=== PATIENT | female | born 1990 | race Caucasian/White ===

== ENCOUNTER 2017-05-29 13:21 | Inpatient (IN) | payer BC ==
[~2017-05-29] VITALS: Ht 149.9 cm; Wt 77.3 kg
[2017-06-05] MEDS ORDERED: PRENATAL1 TA7 PO (20:59)
[2017-06-05] MEDS ORDERED: CALCIUM CARBON650 M2 (21:00)
[2017-06-05] MEDS ORDERED: OMEGA-3 1000 MG1 CAP (21:00)
[2017-06-05 21:01] VITALS: BP 119/66; PULSE 113; TEMP 97.7
[2017-06-05 21:30] VITALS: BP 119/66; PULSE 113
[2017-06-05 22:20] VITALS: BP 121/69; PULSE 80
[2017-06-05 22:50] VITALS: BP 111/52; PULSE 86
[2017-06-05 23:20] VITALS: BP 116/56; PULSE 81
[2017-06-05 23:30] LABS: BASO % 0.2 % (0.0-2.0); EOS # 0.2 (0.0-0.7); EOS % 1.7 % (0-4.0); GRAN # 7.2 (1.4-6.5); GRAN % 67.1 % (42.2-75.2); HEMATOCRIT 38.3 % (37.0-47.0); HEMOGLOBIN 13.2 g/dl (12.5-16.0); LYMPH # 2.5 (1.2-3.4); LYMPH % 23.1 % (20.0-51.0); MEAN CELL VOLUME 90 fl (80.0-100.0); MEAN CORPUSCULAR HEMOGLOBIN 31 pg (27.0-31.0); MEAN CORPUSCULAR HGB CONC 35 g/dl (33.0-37.0); MEAN PLATELET VOLUME 11.3 fl (7.4-10.4); MONO # 0.8 (0.1-0.6); MONO % 7.3 % (1.7-9.3); PLATELET COUNT 244 K/mm3 (130-400); RED BLOOD COUNT 4.24 M/mm3 (4.10-5.30); REDCELL DISTRIBUTION WIDTH-CV 13.2 % (11.5-14.5)
[2017-06-06] VITALS (56 sets, daily range): BP systolic 91–133; BP diastolic 52–84; PULSE 72–122; TEMP 97.8–99.6
[2017-06-07] VITALS (8 sets, daily range): BP systolic 96–125; BP diastolic 57–73; PULSE 88–112; TEMP 97.1–98.7
[2017-06-08 04:00] VITALS: BP 108/62; PULSE 89; TEMP 98.1
[2017-06-08] MEDS ORDERED: IBU800 M1 PO (09:04)
[2017-06-08 09:30] VITALS: BP 113/65; PULSE 78; TEMP 98.2
== END 2017-06-08 16:20 | disposition home or self-care (01) | DRG 775 ==
LOC: LDR 06-05 13:20 → OB 06-07 02:55
PROVIDERS: Student in an Organized Health Care Education/Training Program
PROC: 10E0XZZ Delivery of Products of Conception, External Approach (ICD-10-PCS; principal; 2017-06-06)
PROC: 0KQM0ZZ Repair Perineum Muscle, Open Approach (ICD-10-PCS; 2017-06-06)
PROC: 0UQMXZZ Repair Vulva, External Approach (ICD-10-PCS; 2017-06-06)
PROC: 3E033VJ Introduction of Other Hormone into Peripheral Vein, Percutaneous Approach (ICD-10-PCS; 2017-06-06)
DX: O48.0 Post-term pregnancy (principal); O70.1 Second degree perineal laceration during delivery; O26.86 Pruritic urticarial papules and plaques of pregnancy (PUPPP); O69.81X0 Labor and delivery complicated by cord around neck, without compression, not applicable or unspecified; O71.82 Other specified trauma to perineum and vulva; Z3A.40 40 weeks gestation of pregnancy; Z37.0 Single live birth
CPT/HCPCS: J2590; J7120

== ENCOUNTER → 2017-06-13 | Outpatient (CLI) | payer BC ==
[~2017-06-13] MED LIST: CALCIUM CARBON650 M2; IBU800 M1 PO; OMEGA-3 1000 MG1 CAP; PRENATAL1 TA7 PO
== END ==
LOC: OLC 10:09
DX: Z39.1 Encounter for care and examination of lactating mother (principal); Z71.89 Other specified counseling

== ENCOUNTER → 2017-06-20 | Outpatient (CLI) | payer BC | LOC: OLC 11:35 | DX: Z39.1 Encounter for care and examination of lactating mother (principal); Z71.89 Other specified counseling ==

== ENCOUNTER → 2017-06-27 | Outpatient (CLI) | payer BC | LOC: LAC 09:53 | DX: Z39.1 Encounter for care and examination of lactating mother (principal); Z71.89 Other specified counseling ==

== ENCOUNTER → 2017-07-04 | Outpatient (CLI) | payer BC | LOC: OLC 09:54 | DX: Z39.1 Encounter for care and examination of lactating mother (principal); Z71.89 Other specified counseling ==

== ENCOUNTER → 2017-07-11 | Outpatient (CLI) | payer BC | LOC: OLC 10:04 | DX: Z39.1 Encounter for care and examination of lactating mother (principal); Z71.89 Other specified counseling ==

== ENCOUNTER → 2017-08-01 | Outpatient (CLI) | payer BC | LOC: OLC 09:45 | DX: Z39.1 Encounter for care and examination of lactating mother (principal); Z71.89 Other specified counseling ==

== ENCOUNTER → 2019-10-03 | Outpatient (CLI) | payer BC | LOC: ZCOL.LAB 09:30 | DX: Z20.828 Contact with and (suspected) exposure to other viral communicable diseases (principal) ==

== ENCOUNTER 2019-10-09 07:22 | Inpatient (IN) | payer BC ==
[~2019-10-09] VITALS: Ht 152.4 cm; Wt 87.7 kg
[2019-10-09] VITALS (55 sets, daily range): BP systolic 99–151; BP diastolic 54–85; PULSE 74–127; TEMP 97.9–98.3
--- NOTE | 2019-10-09 07:30 | NUR ---
Pt arrives on unit ambulatory with spouse for IOL. Changed into clean gown. EFM and toco. VSS. Denies regular ctx, vaginal bleeding, LOF, and reports GFM. Admission assessment completed. Consents signed. IV started in LH. Labs drawn. LR insfusing. Pt updated on POC. Bed locked in low position. Call light within reach. No questions or concerns at this time.
[2019-10-09 08:44] LABS: HEMOGLOBIN 12.1 g/dl (12.5-16.0); MEAN CELL VOLUME 91 fl (80.0-100.0); MEAN CORPUSCULAR HEMOGLOBIN 31 pg (27.0-31.0); MEAN CORPUSCULAR HGB CONC 34 g/dl (33.0-37.0); MEAN PLATELET VOLUME 11.4 fl (7.4-10.4); PLATELET COUNT 204 K/mm3 (130-400); RED BLOOD COUNT 3.92 M/mm3 (4.10-5.30); REDCELL DISTRIBUTION WIDTH-CV 13.1 % (11.5-14.5)
[2019-10-09 08:46] LABS: HEMATOCRIT 35.6 % (37.0-47.0)
[2019-10-09 09:28] LABS: BAND 9 % (0-10); LYMPHOCYTE 41 % (20.0-51.0); NEUTROPHILS 43 % (42.0-75.2); PLATELET ESTIMATE NORMAL (NORMAL)
--- NOTE | 2019-10-09 13:37 | NUR ---
Pt sitting at EOB for epidural placement. Difficulty tracing FHR due to maternal position. RN at bedside adjusting monitors. FHR audible.
--- NOTE | 2019-10-09 18:50 | NUR ---
1823- FHT HAVING DEEP VARIABLES RECURRENT WITH EVERY CTX. PROVIDER AT DESK REVIEWING STRIP. RN AND PROVIDER TO BEDSIDE TO CHANGE POSITION. 1825- PROVIDER SVE, UNCHANGED AT /-1. 1830- PITOCIN TURNED OFF VIA DOCTORS VERBAL ORDERS. 183- PROVIDER AND NURSE HELPED PATIENT TO HANDS AND KNEES POSITION. RN AND PROVIDER REMAIN AT BEDSIDE. 1846- PROVIDER AND NURSE HELP PATIENT BACK TO WEDGE LEFT WITH THE PEANUT BALL. FHT NOTED TO BE BETTER BY PROVIDER. RN AND PROVIDER REMAIN AT DESK REVIEWING STRIP CONSTANTLY. CALL LIGHT WITHIN REACH.
[2019-10-10 00:45] VITALS: BP 100/62; PULSE 90; TEMP 97.6
[2019-10-10 04:45] VITALS: BP 100/52; PULSE 91; TEMP 97.7
[2019-10-10 07:10] VITALS: BP 95/52; PULSE 81; TEMP 97.5
--- NOTE | 2019-10-10 10:34 | NUR ---
Initial visit; Mom thanked for looking in on her and offering congratulations for the of her son. thanked patient for choosing [facility].
[2019-10-10 12:50] VITALS: BP 98/55; PULSE 93; TEMP 97.7
[2019-10-10 17:45] VITALS: BP 103/60; PULSE 86; TEMP 97.6
[2019-10-10 20:00] VITALS: BP 110/60; PULSE 88; TEMP 97.9
[2019-10-11 08:15] VITALS: BP 114/66; PULSE 88; TEMP 97.5
[2019-10-11] MEDS ORDERED: IBU800 M1 PO (08:35)
[2019-10-11] MEDS ORDERED: PERCOCET 325 MG1 TA2 PO (08:35)
[2019-10-11 16:51] VITALS: BP 128/67; PULSE 89; TEMP 97.7
[2019-10-11 20:00] VITALS: BP 128/75; PULSE 96; TEMP 97.4
[2019-10-12 08:30] VITALS: BP 118/70; PULSE 91
--- NOTE | 2019-10-12 11:19 | NUR ---
104 DISCHARGE INSTRUCTIONS REVIEWED WITH PATIENT. PATIENT VERBALIZED UNDERSTANDING. NO ADDITIONAL QUESTIONS. PATIENT WILL NOTIFY NURSING STAFF WHEN READY TO LEAVE. 1100 PATIENT LEFT AMBULATORY AND IN NO APPARENT DISTRESS. PATIENT ACCOMPANIED BY SPOUSE AND Patel TROY, NURSING STAFF. ALL PERSONAL BELONGINGS GATHERED FROM PATIENT ROOM.
== END 2019-10-12 11:00 | disposition home or self-care (01) | DRG 788 ==
LOC: LDR 07:22 → OB 11:57
PROVIDERS: ADMIT Student in an Organized Health Care Education/Training Program
PROC: 10D00Z1 Extraction of Products of Conception, Low, Open Approach (ICD-10-PCS; principal; 2019-10-09)
PROC: 3E033VJ Introduction of Other Hormone into Peripheral Vein, Percutaneous Approach (ICD-10-PCS; 2019-10-09)
DX: O48.0 Post-term pregnancy (principal); Z3A.40 40 weeks gestation of pregnancy; Z37.0 Single live birth; O76 Abnormality in fetal heart rate and rhythm complicating labor and delivery; O62.0 Primary inadequate contractions; O99.52 Diseases of the respiratory system complicating childbirth; J45.909 Unspecified asthma, uncomplicated; O75.89 Other specified complications of labor and delivery; O64.0XX0 Obstructed labor due to incomplete rotation of fetal head, not applicable or unspecified
CPT/HCPCS: J0690; J1885; J2175; J2370; J2400; J2405; J2590; J2795; J3010; J7120

== ENCOUNTER 2021-09-03 08:51 | Inpatient (IN) | payer OTHER ==
[~2021-09-03] VITALS: Ht 152.4 cm; Wt 96.8 kg
[2021-09-03] VITALS (16 sets, daily range): BP systolic 100–120; BP diastolic 41–94; PULSE 79–108; TEMP 97.4–98.4
[~2021-09-03 08:51] MED LIST changes: +PERCOCET 325 MG1 TA2 PO
--- NOTE | 2021-09-03 14:45 | NUR ---
1445 - PATIENT AMBULATORY TO ROOM 209. PATIENT ORIENTED TO ROOM. PATIENT CHANGES INTO GOWN. 1500 - PLAN OF CARE REVIEWED. QUESTIONS ANSWERED. PATIENT REPORTS NO LEAKING OF FLUID OR BLOODY SHOW. PATIENT REPORTS GOOD MOVEMENT. CONSENTS REVIEWED. 1510 - PATIENT ON MONITOR. CARE ONGOING.
[2021-09-03 15:40] LABS: BASO % 0.3 % (0.0-2.0); EOS # 0.1 K/mm3 (0.0-0.7); EOS % 1.4 % (0.0-4.0); GRAN # 4.6 K/mm3 (1.4-6.5); GRAN % 62.7 % (42.2-75.2); LYMPH % 27.2 % (20.0-51.0); MEAN CELL VOLUME 79 fl (80.0-100.0); MEAN CORPUSCULAR HGB CONC 32 g/dl (33.0-37.0); MEAN PLATELET VOLUME 10.9 fl (7.4-10.4); MONO # 0.5 K/mm3 (0.1-0.6); MONO % 7.4 % (1.7-9.3); PLATELET COUNT 266 K/mm3 (130-400); RED BLOOD COUNT 3.83 M/mm3 (4.10-5.30); REDCELL DISTRIBUTION WIDTH-CV 13.7 % (11.5-14.5)
[2021-09-03 15:45] LABS: HEMATOCRIT 30.4 % (37.0-47.0); HEMOGLOBIN 9.7 g/dl (12.5-16.0); MEAN CORPUSCULAR HEMOGLOBIN 25 pg (27-31)
[2021-09-04] VITALS: BP 96/60; PULSE 86; TEMP 98.1
[2021-09-04 05:00] VITALS: BP 117/58; PULSE 86; TEMP 97.5
[2021-09-04 06:50] VITALS: BP 120/63; PULSE 80; TEMP 98.6
[2021-09-04 07:37] LABS: BASO % 0.2 % (0.0-2.0); EOS # 0.1 K/mm3 (0.0-0.7); EOS % 0.8 % (0.0-4.0); GRAN # 6.1 K/mm3 (1.4-6.5); GRAN % 67.1 % (42.2-75.2); LYMPH # 1.9 K/mm3 (1.2-3.4); LYMPH % 20.6 % (20.0-51.0); MEAN CELL VOLUME 81 fl (80.0-100.0); MEAN CORPUSCULAR HGB CONC 31 g/dl (33.0-37.0); MEAN PLATELET VOLUME 10.6 fl (7.4-10.4); MONO % 10.5 % (1.7-9.3); PLATELET COUNT 202 K/mm3 (130-400); RED BLOOD COUNT 3.22 M/mm3 (4.10-5.30); REDCELL DISTRIBUTION WIDTH-CV 13.7 % (11.5-14.5)
[2021-09-04 07:40] LABS: HEMATOCRIT 26.1 % (37.0-47.0); HEMOGLOBIN 8.1 g/dl (12.5-16.0); MEAN CORPUSCULAR HEMOGLOBIN 25 pg (27-31)
[2021-09-04 12:00] VITALS: BP 110/56; PULSE 80; TEMP 97.8
[2021-09-04 17:20] VITALS: BP 111/68; PULSE 81; TEMP 97.4
[2021-09-04 20:30] VITALS: BP 110/70; PULSE 89; TEMP 97.8
[2021-09-05 08:15] VITALS: BP 126/72; PULSE 85; TEMP 97.4
[2021-09-05] MEDS ORDERED: IBU800 M1 PO (10:54)
[2021-09-05] MEDS ORDERED: FERROUS SU325 MG/TAB PO (10:54)
[2021-09-05] MEDS ORDERED: PERCOCET 325 MG1 TA2 PO (10:55)
== END 2021-09-05 14:20 | disposition home or self-care (01) | DRG 788 ==
LOC: OB 08:51
PROVIDERS: ADMIT Student in an Organized Health Care Education/Training Program
PROC: 10D00Z1 Extraction of Products of Conception, Low, Open Approach (ICD-10-PCS; principal; 2021-09-03)
DX: O34.211 Maternal care for low transverse scar from previous cesarean delivery (principal); Z37.0 Single live birth; O32.0XX0 Maternal care for unstable lie, not applicable or unspecified; O99.214 Obesity complicating childbirth; O40.3XX0 Polyhydramnios, third trimester, not applicable or unspecified; O90.81 Anemia of the puerperium; D64.9 Anemia, unspecified; Z3A.40 40 weeks gestation of pregnancy; Z86.16 Personal history of COVID-19
CPT/HCPCS: J0690; J1885; J2175; J2370; J2405; J2590; J7120